=== PATIENT | female | born 2000 | race Caucasian/White ===

== ENCOUNTER 2019-08-07 15:46 | Emergency (ER) | payer OTHER ==
[2019-08-07] MEDS ORDERED: Lidocaine 1% 10 ML MDV INJECT ONE (16:00)
--- NOTE | 2019-08-07 16:11 | EDM.PDOC ---
ED HPI GENERAL MEDICAL PROBLEM - General Chief Complaint: Laceration Stated Complaint: FOREHEAD LACERATION Time Seen by Provider: 08/07/19 15:56 Source of Information: Reports: Patient, RN Notes Reviewed History Limitations: Reports: No Limitations - History of Present Illness INITIAL COMMENTS - FREE TEXT/NARRATIVE: Patient is a 18-year-old female presents to the ED with her friend for the evaluation of a head laceration. Patient states that shortly prior to the arrival to the ER, she was hooking her trailer up to her pickup, using the leveling yoselin when the leveling yoselin handle spun around quicker than she thought it did and hit her in the forehead. This resulted in a roughly 2 cm linear laceration to the right eyebrow, on the proximal aspect, that is diagonal in nature. Patient states shortly after the accident she had a little bit of blurred vision, but this has since subsided. There is not a lot of active bleeding noted at the time of exam however there is a gauze placed over the bandage. Does appear to be clean in nature. She did not take any sort of pain medications for this. She is up-to-date on vaccinations, denies any other past medical history. Forehead Pain Score (Numeric/FACES): 7 - Related Data Allergies Allergy/AdvReac Type Severity Reaction Status Date / Time amoxicillin Allergy Hives Verified 08/07/19 15:59 Home Meds: Home Meds . [No Known Home Meds] 08/07/19 [History] ED ROS GENERAL - Review of Systems Review Of Systems: Comprehensive ROS is negative, except as noted in HPI. Constitutional: Denies: Fever, Chills HEENT: Reports: Vision Change (slight blurred vision at time of injury, but not present at exam). Denies: Ear Pain, Eye Pain, Nosebleed Neurological: Denies: Dizziness, Headache ED EXAM, SKIN/RASH Exam: See Below Exam Limited By: No Limitations General Appearance: Alert, WD/WN, No Apparent Distress Eye Exam: Bilateral Eye: EOMI, Normal Inspection, PERRL Ears: Normal External Exam, Normal Canal, Hearing Grossly Normal, Normal TMs Nose: Normal Inspection Throat/Mouth: Normal Inspection, Normal Lips, Normal Teeth, Normal Gums, Normal Oropharynx, Normal Voice, No Airway Compromise Head: Normocephalic, Other (facial laceration, see skin assessment) Neck: Normal Inspection Respiratory/Chest: No Respiratory Distress, Lungs Clear, Normal Breath Sounds, No Accessory Muscle Use, Chest Non-Tender Cardiovascular: Normal Peripheral Pulses, Regular Rate, Rhythm, No Murmur Neurological: Alert, Oriented, Normal Cognition, No Motor/Sensory Deficits Psychiatric: Normal Affect, Normal Mood Skin: Warm, Dry, Normal Color, No Rash, Wound/Incision (2 cm linear laceration to the inner most aspect of the right eyebrow.) ED SKIN PROCEDURES - Laceration/Wound Repair Right Proximal Face Appearance: Superficial, Linear, Clean Distal NVT: Neuro & Vascular Intact, No Tendon Injury Anesthetic Type: Local Local Anesthesia - Lidocaine (Xylocaine): 1% Plain Local Anesthetic Volume: 1cc Skin Prep: Chlorhexidine (Hibiciens), Saline Exploration/Debridement/Repair: Wound Explored, In a Bloodless Field, Explored to Base, No Foreign Material Found Closed with: Sutures Lac/Wound length In cm: 2 Suture Size: 5-0 # of Sutures: 9 Suture Type: Prolene, Interrupted, Simple Sterile Dressing Applied: Nurse Tetanus Status Addressed: Yes Complications: No Course - Vital Signs Last Recorded V/S: Last Vital Signs Temp 98.7 F 08/07/19 15:55 Pulse 84 08/07/19 15:55 Resp 16 08/07/19 15:55 BP 151/103 H 08/07/19 15:55 Pulse Ox 96 08/07/19 15:55 - Orders/Labs/Meds Meds: Medications Discontinued Medications Generic Name Dose Route Start Last Admin Trade Name Freq PRN Reason Stop Dose Admin Lidocaine HCl 10 ml 08/07/19 16:00 08/07/19 16:39 Xylocaine 1% INJECT 08/07/19 16:01 10 ml ONETIME ONE Administration Departure - Departure Time of Disposition: 16:13 Disposition: Home, Self-Care 01 Condition: Fair Clinical Impression: Facial laceration Qualifiers: Encounter type: initial encounter Qualified Code(s): S01.81XA - Laceration without foreign body of other part of head, initial encounter - Discharge Information *PRESCRIPTION DRUG MONITORING PROGRAM REVIEWED*: No *COPY OF PRESCRIPTION DRUG MONITORING REPORT IN PATIENT KJ: No Instructions: Facial Laceration, [id number] Referrals: Marlo Ying MD [Primary Care Provider] - Forms: ED Department Discharge Additional Instructions: You have been evaluated in the ED for your laceration. Sutures will need to stay in for around 5 days (08/12/2019). You may return to the ED or clinic for removal. Please keep this area clean and dry, you may cleanse with regular soap and water. No vigorous scrubbing. Watch out for signs of infection like increased redness, swelling, pain at the laceration site, or if you should develop any fevers or chills. Please return to ED if your symptoms change or worsen. Sepsis Event Note - Evaluation Sepsis Screening Result: No Definite Risk - Focused Exam Vital Signs: Vital Signs Temp Pulse Resp BP Pulse Ox 08/07/19 15:55 98.7 F 84 16 151/103 H 96 Date Exam was Performed: 08/07/19 Time Exam was Performed: 17:56
== END 2019-08-07 18:15 | disposition home or self-care (01) ==
LOC: JD.ED 15:46
DX: S01.111A Laceration without foreign body of right eyelid and periocular area, initial encounter (principal); Z88.0 Allergy status to penicillin; W22.8XXA Striking against or struck by other objects, initial encounter
CPT/HCPCS: 12011; 99282; J2001